=== PATIENT | female | born 1990 | race American Indian/Alaskan Native ===

== ENCOUNTER 2016-11-04 12:02 | Emergency (ER) | payer MEDICAID ==
[2016-11-04 12:17] VITALS: TEMP 98.2; O2SAT 98
--- NOTE | 2016-11-04 12:28 | ED PDOC ---
Arrival/HPI - General Historian: Patient - History of Present Illness Time/Duration: 1 week Symptom Onset: Gradual Symptom Course: Worsening Quality: Cramping Severity Level: Moderate Context: Home <Laura Weems - Last Filed: 11/04/16 14:41> <Shannan Carey - Last Filed: 11/04/16 15:48> - General Chief Complaint: GI Problem Time Seen by Provider: 11/04/16 12:14 - History of Present Illness Narrative History of Present Illness (Text): 11/04/16 12:23 Patient is a 26 y/o with PMH of asthma, h/o umbilical hernia repair ( 23 years ago), and ovarian cyst removal presenting with umbilical and left lower quadrant for 1 week. Patient states the abdominal pain is non radiating, cramping. Patient came to the ED today because the abdominal pain is getting worst and is now accompanied with vomiting and watery diarrhea. Patient states her menstruation is late, LMP Thursday. Patient had similar abdominal pain in May and she was told she had ovarian cysts. Denies dysurea, hematuria, vaginal bleeding. Denies sob or cp. Smokes tobacco a pack every week. Recently moved from [place]. (Laura Weems) Past Medical History - Provider Review Nursing Documentation Reviewed: Yes - Travel History Have you recently traveled outside [place] w/in the past 3 mons?: No - Infectious Disease Hx of Infectious Diseases: None - Tetanus Immunization Tetanus Immunization: Unknown - Cardiac Hx Cardiac Disorders: No - Pulmonary Hx Respiratory Disorders: Yes Hx Asthma: Yes - Neurological Hx Neurological Disorder: No - HEENT Hx HEENT Disorder: No - Renal Hx Renal Disorder: No - Endocrine/Metabolic Hx Endocrine Disorders: No - Hematological/Oncological Hx Blood Disorders: Yes Hx Anemia: Yes Other/Comment: low iron - Integumentary Hx Dermatological Disorder: No - Musculoskeletal/Rheumatological Hx Musculoskeletal Disorders: No - Gastrointestinal Hx Gastrointestinal Disorders: No - Genitourinary/Gynecological Hx Genitourinary Disorders: No - Psychiatric Hx Psychophysiologic Disorder: No Hx Substance Use: No - Surgical History Other/Comment: cyst removed from L ovary - Anesthesia Hx Anesthesia: Yes Hx Anesthesia Reactions: No <Laura Weems - Last Filed: 11/04/16 14:41> Family/Social History - Physician Review Nursing Documentation Reviewed: Yes Family/Social History: No Known Family HX Smoking Status: Light Smoker < 10 Cigarettes Daily Hx Alcohol Use: Yes Frequency of alcohol use: Socially Hx Substance Use: No <DankLaura - Last Filed: 11/04/16 14:41> Allergies/Home Meds <AriajeannettenestorLaura - Last Filed: 11/04/16 14:41> <Shannan Carey - Last Filed: 11/04/16 15:48> Allergies/Adverse Reactions: Allergies Penicillins Allergy (Verified 11/04/16 12:11) RASH cheese Adverse Reaction (Verified 11/04/16 12:11) VOMITING Home Medications: Home Meds Medication Instructions Recorded Confirmed Albuterol HFA [Ventolin HFA 90 1 puff IH PRN PRN 11/04/16 11/04/16 mcg/actuation (8 g)] Ferrous Sulfate [Feosol] 1 tab PO DAILY 11/04/16 11/04/16 Review of Systems - Review of Systems Constitutional: Normal Eyes: Normal ENT: Normal Respiratory: Normal Cardiovascular: Normal Gastrointestinal: Abdominal Pain (umbilical and left lower quadrant. ), Diarrhea , Nausea, Vomiting. absent: Constipation Genitourinary Female: Normal Musculoskeletal: Normal Skin: Normal Neurological: Normal Endocrine: Normal Hemo/Lymphatic: Normal Psychiatric: Normal <DankLaura - Last Filed: 11/04/16 14:41> Physical Exam Vital Signs Reviewed: Yes Temperature: Afebrile Blood Pressure: Normal Pulse: Tachycardic Respiratory Rate: Normal Appearance: Positive for: Well-Appearing, Non-Toxic, Comfortable Pain Distress: None Mental Status: Positive for: Alert and Oriented X 3 - Systems Exam Head: Present: Atraumatic, Normocephalic Pupils: Present: PERRL Conjunctiva: No: Icteric Mouth: Present: Dry Neck: Present: Normal Range of Motion Respiratory/Chest: Present: Clear to Auscultation, Good Air Exchange. No: Respiratory Distress, Accessory Muscle Use Cardiovascular: Present: Regular Rate and Rhythm, Normal S1, S2, Tachycardic. No: Murmurs, Bradycardic Abdomen: Present: Tenderness (umbilical ), Normal Bowel Sounds. No: Distention , Peritoneal Signs, Rebound, Guarding, Hernias, Scars Upper Extremity: Present: Normal Inspection. No: Cyanosis, Edema Lower Extremity: Present: Normal Inspection. No: Edema Neurological: Present: GCS=15 Skin: Present: Warm, Dry, Normal Color Psychiatric: Present: Alert, Oriented x 3, Normal Insight, Normal Concentration <Laura Weems - Last Filed: 11/04/16 14:41> Medical Decision Making Re-evaluation Time: 14:02 Reassessment Condition: Improving,but remains with symptoms <Laura Weems - Last Filed: 11/04/16 14:41> - Lab Interpretations I have reviewed the lab results: Yes <Shannan Carey - Last Filed: 11/04/16 15:48> ED Course and Treatment: 11/04/16 12:36 Patient is a 26 y/o with PMH of asthma, h/o umbilical hernia repair ( 23 years ago), and ovarian cyst removal presenting with worsening umbilical and left lower quadrant for 1 week along with nausea and vomiting. Differentials: gastroenteritis, incarcerated umbilical hernia, ovarian cyst, ovarian torsion, tuboovarian abscess, diverticulitis/diverticulosis, IBS, cystitis. ruled out. Plan: CBC, CMP, LIPASE, UA. 1 L NS BOLUS, Zofran and Pepcid. CT abdo and pelvis. Discussed with Dr Carey. 11/04/16 14:02 Patient reports the abdominal pain has resolved, she's now experiencing burning around the umbilical region. 11/04/16 15:05 Patient is altman her CT abdomen and pelvis is normal, urine test is negative, her urine revealed uti. Patient to be discharged with 7 days of macrobid and zofran prn. (Laura Weems) Patient seen and examined with resident. Came up with treatment and disposition plan with resident. The patient is a 26 year old female who comes into the emergency department for evaluation of umbilical and left lower quadrant abdominal pain associated with nausea, vomiting and diarrhea. Additional HPI details as noted by the resident. On physical examination the patient has tenderness with palpation to the umbilical region but no rebound or guarding. Abdomen/Pelvis CT, lab work and urinalysis ordered to rule out gastroenteritis vs. hernia vs. ovarian cyst/ torsion vs. abscess vs. diverticulitis vs. IBS vs. cystitis. Patient given zofran and IV fluids for symptomatic control. Patient Abdomen/Pelvis CT showed no acute findings. Patient Urinalysis reveal patient has a UTI. On re-evaluation, the patient feels better and is in no acute distress. Results and plan was discussed with the patient, who expresses understanding. Patient in agreement with plan to discharged home with Macrobid. Patient is stable for discharge. Patient was instructed to follow up with physician/clinic in 1-2 days or return if symptoms worsen or new concerning symptoms arise. (Shannan Carey) - Lab Interpretations Lab Results: 11/04/16 12:32 11/04/16 12:32 Lab Results 11/04/16 13:30: Urine Color Yellow, Urine Appearance Cloudy, Urine pH 6.0, Ur Specific [place] >= 1.030, Urine Protein Trace H, Urine Glucose (UA) Negative, Urine Ketones Trace H, Urine Blood Trace-lysed H, Urine Nitrate Negative, Urine Bilirubin Negative, Urine Urobilinogen 0.2, Ur Leukocyte Esterase Small H, Urine RBC 0 - 2, Urine WBC Tntc, Ur Epithelial Cells 6 - 8, Urine Bacteria Mod 11/04/16 12:32: Sodium 141, Potassium 3.9, Chloride 107, Carbon Dioxide 23, Anion Gap 15, BUN 7, Creatinine 0.7, Est GFR ( Amer) > 60, Est GFR (Non- Af Amer) > 60, Random Glucose 89, Calcium 8.9, Total Bilirubin 0.3, AST 24, ALT 31, Alkaline Phosphatase 63, Total Protein 7.4, Albumin 3.9, Globulin 3.5, Albumin/Globulin Ratio 1.1, Lipase 68 11/04/16 12:32: WBC 6.8, RBC 4.42, Hgb 11.9 L, Hct 36.9, MCV 83.5, MCH 26.9, MCHC 32.2, RDW 14.5, Plt Count 268, MPV 11.1 H, Gran % 47.3 L, Lymph % (Auto) 35.7 H, Giles % (Auto) 15.4 H, Eos % (Auto) 1.2 L, Baso % (Auto) 0.4, Gran # 3.22 , Lymph # 2.4, Giles # 1.1 H, Eos # 0.1, Baso # 0.03 - RAD Interpretation Radiology Orders: 11/04/16 12:31 ABDOMEN & PELVIS [ABD & PELVIS W/O PO OR IV CONT] [CT] Stat - Medication Orders Current Medication Orders: Discontinued Medications Famotidine (Pepcid) 20 mg IVP STAT STA Stop: 11/04/16 12:52 Last Admin: 11/04/16 13:38 Dose: 20 mg Sodium Chloride (Sodium Chloride 0.9%) 1,000 mls @ 999 mls/hr IV .Q1H1M STA Stop: 11/04/16 13:33 Last Admin: 11/04/16 13:39 Dose: 999 mls/hr Nitrofurantoin Macrocrystals (Macrobid) 100 mg PO STAT STA Stop: 11/04/16 14:56 Last Admin: 11/04/16 15:12 Dose: 100 mg Ondansetron HCl (Zofran Inj) 4 mg IVP STAT STA Stop: 11/04/16 12:34 Last Admin: 11/04/16 13:38 Dose: 4 mg <Laura Weems - Last Filed: 11/04/16 14:41> - PA / LEARNING DESIGNER / Resident Statement MD/ has reviewed & agrees with the documentation as recorded. MD/DO has examined the patient and agrees with the treatment plan. - Scribe Statement The provider has reviewed the documentation as recorded by the Scribe <Shannan Carey - Last Filed: 11/04/16 15:48> - Scribe Statement Tess Morton Provider Scribe Attestation: All medical record entries made by the Scribe were at my direction and personally dictated by me. I have reviewed the chart and agree that the record accurately reflects my personal performance of the history, physical exam, medical decision making, and the department course for this patient. I have also personally directed, reviewed, and agree with the discharge instructions and disposition. (Shannan Carey) Disposition/Present on Arrival - Present on Arrival Any Indicators Present on Arrival: No History of DVT/PE: No History of Uncontrolled Diabetes: No Urinary Catheter: No History of Decub. Ulcer: No History Surgical Site Infection Following: None - Disposition Have Diagnosis and Disposition been Completed?: Yes Disposition Time: 15:00 Patient Plan: Discharge <Laura Weems - Last Filed: 11/04/16 14:41> <Shannan Carey - Last Filed: 11/04/16 15:48> - Disposition Diagnosis: UTI (urinary tract infection) Disposition: HOME/ ROUTINE Condition: IMPROVED Discharge Instructions (ExitCare): Urinary Tract Infection in Women (ED) Additional Instructions: Please take the antibiotic as prescribed . Follow up with your primary care doctor and your food production associate. Take zofran if the nausea or vomiting continues. Go to the nearest emergency room if the symptoms worsens or if you have new symptoms. Prescriptions: Nitrofurantoin Macrocrystals [Macrobid] 100 mg PO BID #13 cap Ondansetron [Zofran] 4 mg PO Q8H PRN #10 tab PRN Reason: Nausea/Vomiting
[2016-11-04] MEDS ORDERED: Sodium Chloride 0.9% 1,000 ML IV STA (12:33)
[2016-11-04 13:17] VITALS: BP 131/79; PULSE 98; RESP 18
[2016-11-04 13:23] LABS: ADD MANUAL DIFF? NO; BASO # 0.03 K/mm3 (0.0-2.0); BASO % 0.4 % (0.0-3.0); EOS # 0.1 (0.0-0.7); EOS % 1.2 % (1.5-5.0); GRAN # 3.22 (1.4-6.5); GRAN % 47.3 % (50.0-68.0); HEMATOCRIT 36.9 % (36.0-48.0); LYMPH # 2.4 (1.2-3.4); LYMPH % 35.7 % (22.0-35.0); MEAN CELL VOLUME 83.5 fL (80.0-105.0); MEAN CORPUSCULAR HEMOGLOBIN 26.9 pg (25.0-35.0); MEAN CORPUSCULAR HGB CONC 32.2 g/dl (31.0-37.0); MEAN PLATELET VOLUME 11.1 fl (7.0-11.0); MONO # 1.1 (0.1-0.6); MONO % 15.4 % (1.0-6.0); PLATELET COUNT 268 10^3/uL (120.0-450.0); RED CELL DISTRIBUTION WIDTH 14.5 % (11.5-14.5); WHITE BLOOD COUNT 6.8 10^3/ul (4.5-11.0)
[2016-11-04 13:33] LABS: BLOOD UREA NITROGEN 7 mg/dL (7-21); CARBON DIOXIDE 23 mmol/L (21-33); CHLORIDE 107 mmol/L (98-107); GFR AFRICAN-AMERICAN > 60; LIPASE 68 U/L (23-300); POTASSIUM 3.9 mmol/L (3.6-5.0)
[2016-11-04 13:42] LABS: ALB/GLOB RATIO 1.1 (1.1-1.8); ALKALINE PHOSPHATASE 63 U/L (38-133); ALT/SGPT 31 U/L (7-56); AST/SGOT 24 U/L (15-39); BILIRUBIN,TOTAL 0.3 mg/dL (0.2-1.3); CALCIUM 8.9 mg/dL (8.4-10.5); GLUCOSE,RANDOM 89 mg/dL (70-110); SODIUM 141 mmol/L (132-148); TOTAL PROTEIN 7.4 g/dL (5.8-8.3)
[2016-11-04 14:23] LABS: URINE BILIRUBIN NEGATIVE (NEGATIVE); URINE BLOOD TRACE-LYSED (NEGATIVE); URINE GLUCOSE (UA) NEGATIVE (NEGATIVE); URINE KETONE TRACE mg/dL (NEGATIVE); URINE LEUKOCYTE ESTERASE SMALL Leu/uL (NEGATIVE); URINE PROTEIN TRACE mg/dL (<30 mg/dL); URINE UROBILINOGEN 0.2 E.U./dL (<1 E.U./dL)
[2016-11-04 14:28] LABS: URINE APPEARANCE CLOUDY (CLEAR); URINE COLOR YELLOW (YELLOW)
[2016-11-04 14:35] LABS: URINE WBC TNTC /hpf (0-6)
[2016-11-04 14:36] LABS: URINE BACTERIA MOD (NEG); URINE RBC 0 - 2 /hpf (0-2)
--- NOTE | 2016-11-04 15:33 | CT ---
PROCEDURE: CT scan of the abdomen and pelvis dated 11/04/2016 HISTORY: Abdominal pain. COMPARISON: No prior study available comparison. TECHNIQUE: Contiguous axial images of the abdomen and pelvis performed without oral or intravenous contrast material. Coronal and Sagittal reformats generated. Radiation dose: Total exam DLP = 830.31 mGy-cm. This CT exam was performed using one or more of the following dose reduction techniques: Automated exposure control, adjustment of the mA and/or kV according to patient size, and/or use of iterative reconstruction technique. FINDINGS: LOWER THORAX: Mild atelectasis/scarring changes left lung base. No evidence of focal consolidation effusion or basilar pneumothorax. There may be a tiny hiatal hernia. Slight wall thickening of the distal esophagus likely due to protrusion of gastric mucosa. Esophagitis not completely excluded ; clinical correlation recommended. LIVER: The liver exhibits normal size measuring just over 16 cm in CC dimension. No obvious hepatic mass or collection. GALLBLADDER AND BILE DUCTS: Gallbladder is physiologically distended. No evidence of intraluminal gallbladder calculi. PANCREAS: Visualized portions of the unenhanced pancreas appears grossly unremarkable. Note that the pancreas is not well delineated due to the lack of circulating intravenous contrast material as well as lack of opacified adjacent bowel. SPLEEN: Suspect small splenule adjacent to the anterior inferior margin of the spleen. ADRENALS: No adrenal masses. KIDNEYS AND URETERS: Kidneys exhibit relatively symmetric size. No evidence of nephrolithiasis or hydronephrosis. BLADDER: Urinary bladder is incompletely distended which may account for slight thick-walled appearance. The possibility of a cystitis should be excluded. REPRODUCTIVE: Suspect fibroid uterus. APPENDIX: The appendix is unremarkable (best seen on coronal image number [id number]). . No periappendiceal inflammatory changes. BOWEL: Evaluation of the bowel is limited due to lack of oral contrast material. The stomach is distended with food debris liquid and air. Visualized loops of small bowel exhibit normal contour and caliber. No evidence acute mechanical small bowel obstruction. Dated appears to be a few scattered colonic diverticula however no definitive radiographic evidence of acute diverticulitis. There is a moderate amount of stool within cecum and ascending colon and to a lesser degree on the transverse colon. Findings suggest mild fecal retention/ constipation. No evidence of definitive mural wall thickening. PERITONEUM: No evidence of free or loculated fluid collections. . . No free air. Suspect tiny fat containing umbilical hernia. . There also appears to be some circumferential skin thickening surrounding the depth of the umbilicus. This is probably chronic and longstanding as no obvious infiltration changes are seen in the adjacent very umbilical subcutaneous fat. These may correlate with old scarring and given the history of prior hernia surgery during childhood as per discussion with Dr. Carey LYMPH NODES: Unremarkable. No enlarged lymph nodes. VASCULATURE: Unremarkable. No aortic aneurysm. BONES: There is mild levoscoliosis of the lumbar spine centered at approximately the L3-L4 level. Vertebral bodies otherwise exhibit normal alignment. Vertebral bodies demonstrate normal stature with no evidence of acute or chronic compression fractures nor retropulsed fragments. OTHER FINDINGS: None. IMPRESSION: Minor atelectasis and or scarring left lung base. There are a few scattered colonic diverticula however no radiographic evidence of acute diverticulitis. No evidence of acute appendicitis. Findings suggest mild constipation. Suspect tiny fat containing umbilical hernia. There is also some circumferential skin thickening about the depth of the umbilicus of which may be chronic longstanding on inflammation. No obvious infiltration changes are seen in the adjacent subcutaneous fat. . Findings may be postsurgical given the history of hernia during childhood as per discussion with Dr. Carey No evidence of cholelithiasis or nephrolithiasis. The urinary bladder is incompletely distended which may account for thick-walled appearance. Cystitis not excluded. Findings discussed with Dr. Carey at approximately 3:28 p.m. with written down and read back verification.
== END 2016-11-04 15:15 | disposition home or self-care (01) ==
LOC: ED 12:02
DX: N39.0 Urinary tract infection, site not specified (principal)
CPT/HCPCS: 74176; 80053; 81001; 83690; 85025; 96361; 96374; 96375; 99284; J2405; J7040